=== PATIENT | female | born 1950 | race Caucasian/White ===

== ENCOUNTER 2017-02-26 09:57 | Inpatient (IN) | payer OTHER ==
[2017-02-26] VITALS (21 sets, daily range): BP systolic 107–146; BP diastolic 51–64; PULSE 75–114; RESP 12–20; Ht 144.8 cm; Wt 73.4 kg
[~2017-02-26] VITALS: Ht 144.8 cm; Wt 73.4 kg
[2017-02-26] MEDS ORDERED: ALEN35TA23 PO ×2 (10:29→15:04)
[2017-02-26] MEDS ORDERED: CALC-84 PO (10:30)
[2017-02-26] MEDS ORDERED: METF500T3 PO ×2 (10:31→15:04)
[2017-02-26] MEDS ORDERED: GABA300C16 PO ×2 (10:31→15:04)
[2017-02-26] MEDS ORDERED: PRAV10TA43 PO (10:32)
[2017-02-26] MEDS ORDERED: ANAS1TAB PO ×2 (10:33→15:04)
--- NOTE | 2017-02-26 12:28 | HPN ---
Date/Time of Note Date/Time of Note DATE: 02/26/17 TIME: 12:28 Interval H&P Admission Note Pt. seen H&P reviewed: No system changes HEVER MARIANO MD Feb 26, 2017 12:28
[2017-02-26] MEDS ORDERED: LIDOCAINE 2% (SDV) 5 ML INJ ONE (12:29)
[2017-02-26] MEDS ORDERED: MEPERIDINE 100 MG INJ ONE (12:29)
[2017-02-26] MEDS ORDERED: NEOSTIGMINE 3 MG/3 ML SYRINGE ONE (12:29)
[2017-02-26] MEDS ORDERED: GLYCOPYRROLATE 0.4 MG INJ ONE (12:29)
[2017-02-26] MEDS ORDERED: PROPOFOL 20 ML ONE (12:29)
[2017-02-26] MEDS ORDERED: SUCCINYLCHOLINE CHLORIDE 100 MG/5 ML SYG IV ONE (12:29)
[2017-02-26] MEDS ORDERED: ROCURONIUM 50 MG INJ ONE (12:29)
[2017-02-26] MEDS ORDERED: LABETALOL HCL 20MG INJ IV PRN ×2 (12:30→15:30)
[2017-02-26] MEDS ORDERED: METOCLOPRAMIDE 10 MG INJ IV PRN ×2 (12:30→15:30)
[2017-02-26] MEDS ORDERED: MIDAZOLAM 1 MG/ML 2 ML INJ IV PRN ×2 (12:30→15:30)
[2017-02-26] MEDS ORDERED: HYDROmorphONE (0.2 MG/ML) 10ML SYG IV PRN ×6 (12:30→15:30)
[2017-02-26] MEDS ORDERED: ONDANSETRON 4 MG INJ IV PRN ×2 (12:30→15:30)
[2017-02-26] MEDS ORDERED: MEPERIDINE 25 MG INJ IV PRN ×2 (12:30→15:30)
[2017-02-26] MEDS ORDERED: OXYCODONE/ACETAMINOPHEN (5/325) TAB PO PRN ×2 (12:30)
[2017-02-26] MEDS ORDERED: FENTAnyl 50 MCG/ML VIAL IV PRN ×5 (12:30→15:30)
[2017-02-26] MEDS ORDERED: hydrALAzine 20 MG INJ IV PRN ×2 (12:30→15:30)
[2017-02-26] MEDS ORDERED: EPHEDrine SULFATE 50 MG/5 ML SYG IV PRN ×2 (12:30→15:30)
[2017-02-26] MEDS ORDERED: DIPHENHYDRAMINE 50 MG INJ IV PRN ×2 (12:30→15:30)
[2017-02-26] MEDS ORDERED: CEFAZOLIN 1 GM INJ ONE (12:45)
[2017-02-26] MEDS ORDERED: ONDANSETRON 4 MG INJ ONE (14:18)
[2017-02-26] MEDS ORDERED: METOCLOPRAMIDE 10 MG INJ ONE (14:19)
[2017-02-26] MEDS ORDERED: EPHEDrine SULFATE 50 MG/5 ML SYG ONE (14:45)
[2017-02-26] MEDS ORDERED: morphine 2 MG INJ IV PRN (15:00)
[2017-02-26] MEDS ORDERED: ALBUTEROL 0.5% (NEB) 2.5 MG/0.5 ML AMP ONE (15:04)
--- NOTE | 2017-02-26 15:14 | OPR ---
Date/Time of Note Date/Time of Note DATE: 02/26/17 TIME: 15:05 Operative Report Procedure Date: Feb 26, 2017 Preoperative Diagnosis Papillary thyroid carcinoma Postoperative Diagnosis Metastatic papillary thyroid carcinoma Operation/Procedure Performed Total thyroidectomy, central neck dissection, right selective modified neck dissection of levels 3 and 4, and right superior parathyroid autotransplantation. Surgeon Hever Llamas [employer] Anesthesia Type: general Estimated Blood Loss: 100 - 150 ml's Transfusion none Specimen Right lateral neck dissection, central neck dissection with thyroidectomy, parathyroid partial. Grafts/Implants Parathyroid autotransplantation. Tubes/Drains BRODERICK 10 mm flat. Complications none Pt Condition Post Procedure: stable Disposition: PACU Indications Papillary thyroid carcinoma. Procedure Description Description of procedure: The patient was identified in the holding area. We had a discussion to confirm understanding of indications, risks, benefits, alternatives and postoperative care associated with the operation. Informed consent was signed. The patient was taken the operating room and placed supine on the operating table. General endotracheal anesthesia was achieved with a recurrent laryngeal nerve monitor capable endotracheal tube and recurrent laryngeal nerve monitoring was performed throughout the duration of the case. A shoulder roll was placed. The neck was prepped and draped in normal sterile fashion. A 15 blade was used to make a horizontal incision in a preexisting cervical crease. Subplatysmal flaps were elevated circumferentially. The midline raphe between the strap muscles was identified and vertically divided using monopolar cautery. The left sided strap muscles were elevated off the thyroid lobe. Dissection was fairly easy as there were no adhesions or signs of invasion.The superior pole of the thyroid gland was identified and bluntly dissected free to isolate the superior laryngeal nerve and the super pole vascular pedicle. The nerve was kept intact as the vessels were individually ligated and transected with the Liga-sure small jaw. In addition were used to assure continued hemostasis. More inferiorly, the middle thyroid vein was taken after careful ligation and transection and dissection in the tracheoesophageal groove was used to identify the recurrent laryngeal nerve. It was followed superiorly to the cricothyroid joint and in this area the the superior parathyroid gland was identified. The parathyroid was carefully dissected laterally saving the pedicle after which overlying thyroid tissue was from its fibrous attachments to the surrounding soft tissues with the bipolar forceps. More inferior dissection was used to free the entirety of the recurrent laryngeal nerve. The inferior parathyroid and surrounding fat pad was at this point identified and swept laterally, again sparing the pedicle. Careful inspection and palpation of the level 6 [place] at this point revealed no adenopathy. The thyroidectomy commenced in a lateral to medial fashion, dissecting the thyroid gland off of the recurrent nerve towards the trachea. At this point, the contralateral thyroidectomy was performed in a similar sequence. Unfortunately , the large tumor was invading the strap muscles and had fused with metastatic adenopathy in the central neck over the common carotid artery. This necessitated dissection of the supraclavicular fossa to identify the IJ vein and the carotid artery. This anatomy was lateralized to find the RLN. This was followed to the CT joint after which the thyroidectomy commenced laterally to the right side. The great vessels and RLN and vagus were spared as the dissection of a large conglomerate of muscle, nodes and papillary carcinoma was taken up the carotid artery. This was freed and sent for permanent evaluation. A parathyroid gland was found in the posterior aspect of the specimen. This was confirmed by frozen section, morselized, and then implanted into the ipsilateral SCM. The area was oversewn with 2 nylon. Next, the lateral neck at level 4 was palpated and inspected. A large node was identified. Decision was made to proceed with level 3 and 4 selective neck dissection. The SCM was lateralized and the cervical roots were identified. The contents of level 4 were dissected superiorly sparing the rootlets, jugular vein, and vagus nerve. This was taken up above the level of the resected omohyoid towards the level two neck. All nodes were freed from the carotid sheath to the digastric muscle. The specimen was transected. Valsalva was performed. There was no bleeding or oozing. 10 mm flat BRODERICK was placed. A 3-0 Vicryl was used to reapproximate the strap muscles in midline after which the same suture was used to reapproximate the platysma in interrupted buried fashion. Jackson were used to reapproximate the skin. The patient tolerated the procedure well and was extubated, taken to PACU in stable condition. Complications: None HEVER LLAMAS MD Feb 26, 2017 15:14
[2017-02-26] MEDS: FENTAnyl 50 MCG/ML VIAL IV PRN ×4 (15:26→15:56)
[2017-02-26] MEDS ORDERED: ALBUTEROL 0.083% (NEB) 2.5 MG/3 ML AMP HHN PRN (15:30)
[2017-02-26] MEDS ORDERED: AMPICILLIN/SULB 3 GM/NS (PMX) 100 ML IVPB SCH (16:00)
[2017-02-26] MEDS: AMPICILLIN/SULB 3 GM/NS (PMX) 100 ML IVPB SCH (18:32)
--- NOTE | 2017-02-26 20:28 | PN ---
Date/Time of Note Date/Time of Note DATE: 02/26/17 TIME: 20:26 Assessment/Plan VTE Prophylaxis VTE Prophylaxis Intervention: ambulation Lines/Catheters IV Catheter Type (from Nrsg): Peripheral IV Assessment/Plan Chief Complaint/Hosp Course Subjective: Pain controlled no dyspnea fever. Sore throat. Objective: Vital signs stable Physical exam No pallor icterus. Next dressing C/D/ Regular no murmur rub gallop Clear bilaterally Bowel sounds positive nontender nondistended no rigidity rebound guarding overweight. No edema Assessment and plan 1. Pod 0 :Total thyroidectomy, central neck dissection, rt selective mod neck dissection of levels 3/4, and Rt superior parathyroid autotransplantation 2. Thyroid malignancy 3. History of breast cancer 4. Diabetes? 5. DJD Problems: Exam/Review of Systems Vital Signs Vitals Vital Signs Date Time Temp Pulse Resp B/P Pulse Ox O2 Delivery O2 Flow Rate FiO2 02/26/17 20:15 98.6 100 20 121/58 96 02/26/17 18:15 Nasal Cannula 3.0 Intake and Output 02/25/17 02/25/17 02/26/17 15:00 23:00 07:00 Intake Total 700 ml Output Total 50 ml Balance 650 ml Results Results 24 hrs Laboratory Tests Test 02/26/17 16:37 Calcium Level 8.9 Medications Medications Current Medications Morphine Sulfate (morphine) 2 mg Q2H PRN IV PAIN LEVEL 6-10 Last administered on 02/26/17 18:37; Admin Dose 2 MG; Start 02/26/17 at 15:00 Oxycodone/ Acetaminophen (Percocet (5/ 325)) 1 tab Q6H PRN PO PAIN LEVEL 6-10; Start 02/26/17 at 15:00 Calcium Carbonate 1000 mg 1,000 mg BID PO ; Start 02/26/17 at 21:00 Ampicillin Sodium/ Sulbactam Sodium (Unasyn 3gm/NS (Pmx)) 100 ml @ 200 mls/hr Q6H IVPB Last administered on 02/26/17 18:32; Admin Dose 200 MLS/HR; Start 02/26/17 at 18:00 ETIENNE GREENWOOD MD Feb 26, 2017 20:28
[2017-02-26] MEDS: CALCIUM CARBONATE 500 MG CHEW TAB PO SCH (21:04)
[2017-02-27] MEDS: AMPICILLIN/SULB 3 GM/NS (PMX) 100 ML IVPB SCH ×4 (00:19→18:23)
[2017-02-27] MEDS: OXYCODONE/ACETAMINOPHEN (5/325) TAB PO PRN ×3 (01:53→21:34)
[2017-02-27 02:15] VITALS: BP 108/64; RESP 18
[2017-02-27 04:58] LABS: BASOPHILS % 0.2 % (0.0-2.0); EOSINOPHILS % 0.2 % (0.0-7.0); HEMATOCRIT 34.4 % (37.0-47.0); HEMOGLOBIN 11.1 g/dl (12.0-16.0); LYMPHOCYTES # 1.3 10^3/ul (0.8-2.9); LYMPHOCYTES % 15.1 % (15.0-51.0); MEAN CORPUSCULAR HEMOGLOBIN 29.2 pg (29.0-33.0); MEAN CORPUSCULAR HGB CONC 32.3 g/dl (32.0-37.0); MEAN CORPUSCULAR VOLUME 90.5 fl (82.0-101.0); MONOCYTE # 0.6 10^3/ul (0.3-0.9); MONOCYTES % 6.6 % (0.0-11.0); NEUTROPHIL # 6.8 10^3/ul (1.6-7.5); NEUTROPHILS % 77.6 % (39.0-77.0); PLATELET COUNT 163 10^3/UL (140-415); RED CELL DISTRIBUTION WIDTH 13.2 % (11.5-14.5); WHITE BLOOD COUNT 8.8 10^3/ul (4.8-10.8)
[2017-02-27 05:47] LABS: ALBUMIN/GLOBULIN RATIO 0.96; BILIRUBIN,INDIRECT 0.5 mg/dl (0-1.1); BILIRUBIN,TOTAL 0.5 mg/dl (0.2-1.3); CALCIUM 8.2 mg/dl (8.4-10.2); CREATININE 0.58 mg/dl (0.44-1.00); MAGNESIUM 1.6 mg/dl (1.7-2.5); PHOSPHORUS 5.1 mg/dl (2.5-4.9); POTASSIUM 3.9 mmol/L (3.5-5.1); TOTAL PROTEIN 6.1 g/dl (6.1-8.1)
[2017-02-27 06:15] LABS: THYROID STIMULATING HORMONE 0.588 MIU/L (0.465-4.680)
[2017-02-27] MEDS: ENOXAPARIN 40 MG/0.4 ML SYG SC SCH (08:13)
[2017-02-27] MEDS: CALCIUM CARBONATE 500 MG CHEW TAB PO SCH ×2 (08:13→21:34)
[2017-02-27] MEDS ORDERED: MAGNESIUM SULFATE 1 GM/D5W 100 ML IVPB ONE (12:00)
--- NOTE | 2017-02-27 12:00 | CONS ---
Date/Time of Note Date/Time of Note DATE: 02/27/17 TIME: 11:57 Consult Date/Type/Reason Admit Date/Time Feb 26, 2017 at 15:04 Initial Consult Date Subjective Patient having some mild neck pain, otherwise tolerating diet, no acute events overnight. Objective Vital Signs Date Time Temp Pulse Resp B/P Pulse Ox O2 Delivery O2 Flow Rate FiO2 02/27/17 08:00 Nasal Cannula 3.0 02/27/17 02:15 98.6 73 18 108/64 96 Intake and Output 02/26/17 02/26/17 02/27/17 15:00 23:00 07:00 Intake Total 300 ml 200 ml Output Total 10 ml 460 ml 50 ml Balance -10 ml -160 ml 150 ml Exam No pallor icterus. Neck surgical site covered with bandage, appears clean dry and intact otherwise Regular no murmur rub gallop Clear bilaterally Bowel sounds positive nontender nondistended no rigidity rebound guarding overweight. No edema Results/Medications Result Diagram: 02/27/17 0420 02/27/17 0421 Results 24 hrs Laboratory Tests Test 02/26/17 16:37 02/27/17 04:20 02/27/17 04:21 Calcium Level 8.9 8.2 L White Blood Count 8.8 Red Blood Count 3.80 L Hemoglobin 11.1 L Hematocrit 34.4 L Mean Corpuscular Volume 90.5 Mean Corpuscular Hemoglobin 29.2 Mean Corpuscular Hemoglobin Concent 32.3 Red Cell Distribution Width 13.2 Platelet Count 163 Mean Platelet Volume 11.0 H Neutrophils % 77.6 H Lymphocytes % 15.1 Monocytes % 6.6 Eosinophils % 0.2 Basophils % 0.2 Nucleated Red Blood Cells % 0.0 Neutrophils # 6.8 Lymphocytes # 1.3 Monocytes # 0.6 Eosinophils # 0.0 Basophils # 0.0 Nucleated Red Blood Cells # 0.0 Sodium Level 140 Potassium Level 3.9 Chloride Level 102 Carbon Dioxide Level 31 Anion Gap 11 Blood Urea Nitrogen 16 Creatinine 0.58 Glucose Level 130 Phosphorus Level 5.1 H Magnesium Level 1.6 L Total Bilirubin 0.5 Direct Bilirubin 0.00 Indirect Bilirubin 0.5 Aspartate Amino Transf (AST/SGOT) 20 Alanine Aminotransferase (ALT/SGPT) 31 Alkaline Phosphatase 49 Total Protein 6.1 Albumin 3.0 L Globulin 3.10 Albumin/Globulin Ratio 0.96 Thyroid Stimulating Hormone (TSH) 0.588 Medications Current Medications Morphine Sulfate (morphine) 2 mg Q2H PRN IV PAIN LEVEL 6-10 Last administered on 02/26/17 18:37; Admin Dose 2 MG; Start 02/26/17 at 15:00 Oxycodone/ Acetaminophen (Percocet (5/ 325)) 1 tab Q6H PRN PO PAIN LEVEL 6-10 Last administered on 02/27/17 11:46; Admin Dose 1 TAB; Start 02/26/17 at 15: 00 Calcium Carbonate 1000 mg 1,000 mg BID PO Last administered on 02/27/17 08:13 ; Admin Dose 1,000 MG; Start 02/26/17 at 21:00 Ampicillin Sodium/ Sulbactam Sodium (Unasyn 3gm/NS (Pmx)) 100 ml @ 200 mls/hr Q6H IVPB Last administered on 02/27/17 11:46; Admin Dose 200 MLS/HR; Start 02/26/17 at 18:00 Enoxaparin Sodium (Lovenox) 40 mg DAILY SC Last administered on 02/27/17 08: 13; Admin Dose 40 MG; Start 02/27/17 at 09:00 Influenza Virus Vaccine 0.5 ml 0.5 ml ONCE ONCE IM* ; Start 02/27/17 at 16:00; Stop 02/27/17 at 16:01 Magnesium Sulfate/ Dextrose (Magnesium Sulfate 1 Gm/D5W) 100 ml @ 100 mls/hr ONCE ONCE IVPB ; Start 02/27/17 at 12:00; Stop 02/27/17 at 12:59 Assessment/Plan Chief Complaint/Hosp Course Assessment and plan 1. Pod 1 :Total thyroidectomy, central neck dissection, rt selective mod neck dissection of levels 3/4, and Rt superior parathyroid autotransplantation- continue treatment per primary team 2. Thyroid malignancy -monitor 3. History of breast cancer -monitor 4. Diabetes? -Monitor sugars 5. DJD Problems: DARVIN PIPER Feb 27, 2017 12:00
--- NOTE | 2017-02-27 12:27 | PN ---
Date/Time of Note Date/Time of Note DATE: 02/27/17 TIME: 12:26 Assessment/Plan VTE Prophylaxis VTE Prophylaxis Intervention: ambulation Lines/Catheters IV Catheter Type (from Nrsg): Peripheral IV Subjective 24 Hr Interval Summary Free Text/Dictation Doing well. Mild pain. Ca down to 8.2. BRODERICK 50 to 15 overnight Neck flat. AP. Stable. Appreciate IM input. DC planning for tomorrow if JPO stays low and Ca stays normal. Exam/Review of Systems Vital Signs Vitals Vital Signs Date Time Temp Pulse Resp B/P Pulse Ox O2 Delivery O2 Flow Rate FiO2 02/27/17 08:00 Nasal Cannula 3.0 02/27/17 02:15 98.6 73 18 108/64 96 Intake and Output 02/26/17 02/26/17 02/27/17 15:00 23:00 07:00 Intake Total 300 ml 200 ml Output Total 10 ml 460 ml 50 ml Balance -10 ml -160 ml 150 ml Results Result Diagram: 02/27/17 0420 02/27/17 0421 Results 24 hrs Laboratory Tests Test 02/26/17 16:37 02/27/17 04:20 02/27/17 04:21 Calcium Level 8.9 8.2 L White Blood Count 8.8 Red Blood Count 3.80 L Hemoglobin 11.1 L Hematocrit 34.4 L Mean Corpuscular Volume 90.5 Mean Corpuscular Hemoglobin 29.2 Mean Corpuscular Hemoglobin Concent 32.3 Red Cell Distribution Width 13.2 Platelet Count 163 Mean Platelet Volume 11.0 H Neutrophils % 77.6 H Lymphocytes % 15.1 Monocytes % 6.6 Eosinophils % 0.2 Basophils % 0.2 Nucleated Red Blood Cells % 0.0 Neutrophils # 6.8 Lymphocytes # 1.3 Monocytes # 0.6 Eosinophils # 0.0 Basophils # 0.0 Nucleated Red Blood Cells # 0.0 Sodium Level 140 Potassium Level 3.9 Chloride Level 102 Carbon Dioxide Level 31 Anion Gap 11 Blood Urea Nitrogen 16 Creatinine 0.58 Glucose Level 130 Phosphorus Level 5.1 H Magnesium Level 1.6 L Total Bilirubin 0.5 Direct Bilirubin 0.00 Indirect Bilirubin 0.5 Aspartate Amino Transf (AST/SGOT) 20 Alanine Aminotransferase (ALT/SGPT) 31 Alkaline Phosphatase 49 Total Protein 6.1 Albumin 3.0 L Globulin 3.10 Albumin/Globulin Ratio 0.96 Thyroid Stimulating Hormone (TSH) 0.588 Medications Medications Current Medications Morphine Sulfate (morphine) 2 mg Q2H PRN IV PAIN LEVEL 6-10 Last administered on 02/26/17 18:37; Admin Dose 2 MG; Start 02/26/17 at 15:00 Oxycodone/ Acetaminophen (Percocet (5/ 325)) 1 tab Q6H PRN PO PAIN LEVEL 6-10 Last administered on 02/27/17 11:46; Admin Dose 1 TAB; Start 02/26/17 at 15: 00 Calcium Carbonate 1000 mg 1,000 mg BID PO Last administered on 02/27/17 08:13 ; Admin Dose 1,000 MG; Start 02/26/17 at 21:00 Ampicillin Sodium/ Sulbactam Sodium (Unasyn 3gm/NS (Pmx)) 100 ml @ 200 mls/hr Q6H IVPB Last administered on 02/27/17 11:46; Admin Dose 200 MLS/HR; Start 02/26/17 at 18:00 Enoxaparin Sodium (Lovenox) 40 mg DAILY SC Last administered on 02/27/17 08: 13; Admin Dose 40 MG; Start 02/27/17 at 09:00 Influenza Virus Vaccine 0.5 ml 0.5 ml ONCE ONCE IM* ; Start 02/27/17 at 16:00; Stop 02/27/17 at 16:01 Magnesium Sulfate/ Dextrose (Magnesium Sulfate 1 Gm/D5W) 100 ml @ 100 mls/hr ONCE ONCE IVPB ; Start 02/27/17 at 12:00; Stop 02/27/17 at 12:59 HEVER MARIANO MD Feb 27, 2017 12:27
[2017-02-27] MEDS ORDERED: INFLUENZA VIRUS VACCINE 0.5 ML SYG IM* ONE (16:00)
[2017-02-27 19:47] VITALS: BP 134/60; RESP 20
[2017-02-28] MEDS: AMPICILLIN/SULB 3 GM/NS (PMX) 100 ML IVPB SCH ×4 (00:13→17:33)
[2017-02-28 02:53] VITALS: BP 130/62; RESP 18
[2017-02-28 07:27] VITALS: BP 111/52; RESP 19
[2017-02-28] MEDS: CALCIUM CARBONATE 500 MG CHEW TAB PO SCH ×3 (09:01→21:15)
[2017-02-28] MEDS: ENOXAPARIN 40 MG/0.4 ML SYG SC SCH (09:06)
--- NOTE | 2017-02-28 11:41 | CONS ---
Date/Time of Note Date/Time of Note DATE: 02/28/17 TIME: 11:40 Consult Date/Type/Reason Admit Date/Time Feb 26, 2017 at 15:04 Subjective Patient says when drinking milk having some difficulty swallowing, denies nausea or vomiting. Objective Vital Signs Date Time Temp Pulse Resp B/P Pulse Ox O2 Delivery O2 Flow Rate FiO2 02/28/17 07:27 98.0 87 19 111/52 98 02/27/17 08:00 Nasal Cannula 3.0 Intake and Output 02/27/17 02/27/17 02/28/17 15:00 23:00 07:00 Intake Total 1020 ml 100 ml Output Total 10 ml 820 ml 10 ml Balance -10 ml 200 ml 90 ml Exam No pallor icterus. Neck surgical site covered with bandage, Drain in place, appears clean dry and intact otherwise Regular no murmur rub gallop Clear bilaterally Bowel sounds positive nontender nondistended no rigidity rebound guarding overweight. No edema Results/Medications Result Diagram: 02/27/1741902/27/17 042 Results 24 hrs Laboratory Tests Test 02/27/17 15:24 Calcium Level 7.9 L Medications Current Medications Morphine Sulfate (morphine) 2 mg Q2H PRN IV PAIN LEVEL 6-10 Last administered on 02/26/17 18:37; Admin Dose 2 MG; Start 02/26/17 at 15:00 Oxycodone/ Acetaminophen (Percocet (5/ 325)) 1 tab Q6H PRN PO PAIN LEVEL 6-10 Last administered on 02/27/17 21:34; Admin Dose 1 TAB; Start 02/26/17 at 15: 00 Calcium Carbonate 1000 mg 1,000 mg BID PO Last administered on 02/28/17 09:01 ; Admin Dose 1,000 MG; Start 02/26/17 at 21:00 Ampicillin Sodium/ Sulbactam Sodium (Unasyn 3gm/NS (Pmx)) 100 ml @ 200 mls/hr Q6H IVPB Last administered on 02/28/17 06:25; Admin Dose 200 MLS/HR; Start 02/26/17 at 18:00 Enoxaparin Sodium (Lovenox) 40 mg DAILY SC Last administered on 02/28/17 09: 06; Admin Dose 40 MG; Start 02/27/17 at 09:00 Assessment/Plan Chief Complaint/Hosp Course Assessment and plan 1. Pod # 2 :Total thyroidectomy, central neck dissection, rt selective mod neck dissection of levels 3/4, and Rt superior parathyroid autotransplantation- continue treatment per primary team, monitoring calcium levels 2. Thyroid malignancy -monitor 3. History of breast cancer -monitor 4. Diabetes? -Monitor sugars 5. DJD Problems: DARVIN PIPER Feb 28, 2017 11:41
[2017-02-28] MEDS ORDERED: CALCIUM CARBONATE 500 MG CHEW TAB PO ONE ×2 (12:00→14:00)
[2017-02-28 14:00] VITALS: BP 121/61; RESP 18
[2017-02-28] MEDS: CALCITRIOL 0.25 MCG CAP PO SCH ×2 (14:43→21:15)
[2017-02-28 19:20] VITALS: BP 142/63; RESP 18
[2017-02-28] MEDS ORDERED: CALCIUM GLUCONATE 10% 1 GM in SOD CHLORIDE 0.9% 100 ML IVPB ONE (20:30)
[2017-02-28] MEDS ORDERED: CALCIUM CARBONATE 500 MG CHEW TAB PO SCH (21:00)
[2017-03-01] MEDS: AMPICILLIN/SULB 3 GM/NS (PMX) 100 ML IVPB SCH ×3 (00:06→12:03)
[2017-03-01 02:00] VITALS: BP 133/62; RESP 18
[2017-03-01] MEDS: CALCIUM CARBONATE 500 MG CHEW TAB PO SCH ×6 (02:59→21:02)
[2017-03-01] MEDS: CALCITRIOL 0.25 MCG CAP PO SCH ×2 (08:25→21:02)
[2017-03-01] MEDS: ENOXAPARIN 40 MG/0.4 ML SYG SC SCH (08:28)
[2017-03-01 08:39] VITALS: BP 134/59; RESP 18
--- NOTE | 2017-03-01 11:55 | CONS ---
Date/Time of Note Date/Time of Note DATE: 03/01/17 TIME: 11:51 Consult Date/Type/Reason Admit Date/Time Feb 26, 2017 at 15:04 Subjective No acute events overnight, minimal drainage from drain. Received calcium supplementation yesterday, levels normal today. Objective Vital Signs Date Time Temp Pulse Resp B/P Pulse Ox O2 Delivery O2 Flow Rate FiO2 03/01/17 08:39 98.3 65 18 134/59 92 02/27/17 08:00 Nasal Cannula 3.0 Intake and Output 02/28/17 02/28/17 03/01/17 15:00 23:00 07:00 Intake Total 800 ml 860 ml 600 ml Output Total 805 ml 5 ml Balance 800 ml 55 ml 595 ml Exam No pallor icterus. Neck surgical site covered with bandage, Drain in place, appears clean dry and intact otherwise Regular no murmur rub gallop Clear bilaterally Bowel sounds positive nontender nondistended no rigidity rebound guarding overweight. No edema Results/Medications Result Diagram: 02/27/17 0420 02/27/17 042 Results 24 hrs Laboratory Tests Test 02/28/17 12:09 02/28/17 15:44 02/28/17 20:02 03/01/17 00:33 Calcium Level 7.6 L 6.9 L 8.0 L 7.9 L Test 03/01/17 04:50 03/01/17 08:22 Calcium Level 7.8 L 8.7 Medications Current Medications Morphine Sulfate (morphine) 2 mg Q2H PRN IV PAIN LEVEL 6-10 Last administered on 02/26/17 18:37; Admin Dose 2 MG; Start 02/26/17 at 15:00 Oxycodone/ Acetaminophen 1 tab 1 tab Q6H PRN PO PAIN LEVEL 6-10 Last administered on 02/27/17 21:34; Admin Dose 1 TAB; Start 02/26/17 at 15:00 Ampicillin Sodium/ Sulbactam Sodium (Unasyn 3gm/NS (Pmx)) 100 ml @ 200 mls/hr Q6H IVPB Last administered on 03/01/17 05:48; Admin Dose 200 MLS/HR; Start 02/26/17 at 18:00 Enoxaparin Sodium (Lovenox) 40 mg DAILY SC Last administered on 03/01/17 08: 28; Admin Dose 40 MG; Start 02/27/17 at 09:00 Calcium Carbonate (Tums) 2,000 mg Q4 PO Last administered on 03/01/17 08:25; Admin Dose 2,000 MG; Start 02/28/17 at 17:00 Calcitriol (Rocaltrol) 0.5 mcg BID PO Last administered on 03/01/17 08:25; Admin Dose 0.5 MCG; Start 02/28/17 at 14:00 Assessment/Plan Chief Complaint/Hosp Course Assessment and plan 1. Pod # 3 :Total thyroidectomy, central neck dissection, rt selective mod neck dissection of levels 3/4, and Rt superior parathyroid autotransplantation- continue treatment per primary team, monitoring calcium levels 2. Thyroid malignancy -monitor 3. History of breast cancer -monitor 4. Diabetes? -Monitor sugars 5. DJD Problems: DARVIN PIPER Mar 01, 2017 11:55
[2017-03-01 14:54] VITALS: BP 130/72; RESP 18
[2017-03-01] MEDS ORDERED: CALCIUM GLUCONATE 10% 1 GM in SOD CHLORIDE 0.9% 100 ML IVPB ONE (15:00)
--- NOTE | 2017-03-01 15:46 | CONS ---
Date/Time of Note Date/Time of Note DATE: 03/01/17 TIME: 15:29 Assessment/Plan Assessment/Plan Chief Complaint/Hosp Course Primary care physician is Dr. Haley Naqvi PSYCHOLOGIST SOCIAL fax number is [phone] Problems: (1) Hypocalcemia Onset Date: ~ 02/27/2017 Status: Acute Comment: Patient has acute postoperative hypocalcemia. She has been treated with some oral calcium and also with IV calcium. She is on calcitriol at an appropriate dosing. However is quite possible she had some degree of vitamin D deficiency before surgery we do not have any of those labs. I will go ahead and replete her parenterally to get her up to the level that she can be discharged. This will have to be fine-tuned. 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 She however did have spread beyond the capsule with local tumor. Given her age above 45 this stage her as a stage IV disease process. To the best I can tell from the dictation she does not have bulky residual disease and therefore should be treated with radioactive iodine ablation therapy as an outpatient. Please note she may have some recurrent laryngeal nerve injury possibly (3) Papillary thyroid carcinoma Status: Acute Comment: As noted above. Thyroid hormone suppression for the time being using short acting agent liothyronine until after radioactive iodine ablation then treatment with levothyroxine at suppressive doses aiming to get the TSH at roughly 0.1 MICROSCOPIC DIAGNOSIS: A-Right superior parathyroid: -- Parathyroid tissue. -- There is no evidence of malignancy. B-Thyroid central neck, total thyroidectomy: -- Papillary carcinoma, classical type, right lobe. -- Size: 4.2 cm in maximum diameter. -- No angioinvasion or lymphatic invasion identified. -- There is extrathyroidal extension of carcinoma. -- A focus of carcinoma extends to the anterior inked margin where there is disruption of the capsule. -- Metastatic papillary carcinoma present in right perithyroidal soft tissue. -- Parathyroid identified, right lobe. -- Small adenomatoid and colloid nodules, left lobe. C-Right cervical lymph nodes, level 3 and 4: -- Five lymph nodes are negative for metastatic carcinoma (0/5). SYNOPTIC CANCER CASE SUMMARY: PROCEDURE: Total thyroidectomy. LYMPH NODE SAMPLING: Right lateral neck dissection. TUMOR LATERALITY: Right lobe. TUMOR FOCALITY: Unifocal. TUMOR SIZE: 4.2 cm in greatest dimension (x 2.5 x 2.4 cm) (maximum dimension includes cystic area of tumor). HISTOLOGIC TYPE: Papillary carcinoma, classical type. Subcapsular location: Present. Sclerosis: Present. Encapsulation: Present. Capsular invasion: Present MARGINS: Papillary carcinoma focally extends to the anterior inked margin of resection where the capsule is disrupted (0.5 cm diameter area, slide B13). All other margins of resection are clear of tumor. ANGIOINVASION: Not identified. LYMPHATIC INVASION: Not identified. PERINEURAL INVASION: Present, focal. EXTRATHYROIDAL EXTENSION: Present, minimal. Carcinoma invades perithyroidal soft tissue including attached skeletal muscle. Additionally, there is a separate focus of metastatic papillary carcinoma within right perithyroidal soft tissue (slide B4). PATHOLOGIC STAGING (pTNM): pT3 pN0. REGIONAL LYMPH NODES: Number examined: 5 Number involved: 0 ADDITIONAL PATHOLOGIC FINDINGS: Adenomatoid nodule and colloid nodules, left lobe. Parathyroid glands, left lobe (one in specimen B and one separately biopsied, specimen A). (4) Carcinoma of right breast in female, estrogen receptor positive Onset Date: ~ 03/29/2016 Status: Chronic Comment: As per Dr. Sosa Qualifiers: Qualified Code: C50.911 - Carcinoma of right breast in female, estrogen receptor positive, unspecified site of breast (5) GERD (gastroesophageal reflux disease) Status: Chronic Comment: Noted in stable Qualifiers: Qualified Code: K21.9 - Gastroesophageal reflux disease without esophagitis (6) Osteoarthritis Status: Chronic Comment: Noted in stable Qualifiers: Qualified Code: M19.91 - Primary osteoarthritis, unspecified site (7) Diabetes mellitus type 2 in obese Status: Chronic Comment: Appears to probably be stable. (8) Obesity Status: Chronic Comment: Noted Qualifiers: (9) Osteoporosis Status: Chronic Comment: Noted. Continue bisphosphonate therapy Qualifiers: Qualified Code: M81.0 - Age-related osteoporosis without current pathological fracture Consultation Date/Type/Reason Admit Date/Time Feb 26, 2017 at 15:04 Date of Consultation: Mar 01, 2017 Type of Consultation: Endocrinology Reason for Consultation Postoperative hypocalcemia Referring Provider: HEVER MARIANO MD Hx of Present Illness 67-year-old female with a diagnosis of papillary carcinoma thyroid after the age of 43 with a tumor 4.2 cm with local spread without distant metastases or lymphadenopathy. Postoperatively she has had dropping calciums. Please note on surgical specimen there were parathyroid glands. Constitutional: no complaints Eyes: no complaints ENT: no complaints Respiratory: no complaints Past Medical History Medical History: cancer (Breast;), diabetes, GERD, high cholesterol, other ( Osteoporosis; no history of radiation) Past Surgical History Past Surgical Hx: other (right breast lumpectomy 2016; right knee arthroscopy) Family History Significant Family History: cancer, diabetes Social History Alcohol Use: none Smoking Status: Never smoker Drug Use: none Exam/Review of Systems Vital Signs Vitals Vital Signs Date Time Temp Pulse Resp B/P Pulse Ox O2 Delivery O2 Flow Rate FiO2 03/01/17 14:54 98.5 67 18 130/72 96 02/27/17 08:00 Nasal Cannula 3.0 Intake and Output 02/28/17 02/28/17 03/01/17 15:00 23:00 07:00 Intake Total 800 ml 860 ml 600 ml Output Total 805 ml 5 ml Balance 800 ml 55 ml 595 ml Exam Constitutional: alert, oriented Psych: nl mood/affect, no complaints Head: atraumatic, normocephalic Eyes: EOMI, PERRL, nl conjunctiva, nl lids, nl sclera ENMT: mucosa pink and moist, nl external ears & nose, nl lips & teeth, nl nasal mucosa & septum, other Neck: non-tender, other, supple Respiratory: clear to auscultation, normal air movement Cardiovascular: nl pulses, regular rate and rhythm Gastrointestinal: nl liver, spleen, non-tender, soft Results Result Diagram: 02/27/1741902/27/17420 Results 24 hrs Laboratory Tests Test 02/28/17 15:44 02/28/17 20:02 03/01/17 00:33 03/01/17 04:50 Calcium Level 6.9 L 8.0 L 7.9 L 7.8 L Test 03/01/17 08:22 03/01/17 12:06 Calcium Level 8.7 8.0 L Medications Medications Current Medications Morphine Sulfate (morphine) 2 mg Q2H PRN IV PAIN LEVEL 6-10 Last administered on 02/26/17 18:37; Admin Dose 2 MG; Start 02/26/17 at 15:00 Oxycodone/ Acetaminophen (Percocet (5/ 325)) 1 tab Q6H PRN PO PAIN LEVEL 6-10 Last administered on 02/27/17 21:34; Admin Dose 1 TAB; Start 02/26/17 at 15: 00 Enoxaparin Sodium (Lovenox) 40 mg DAILY SC Last administered on 03/01/17 08: 28; Admin Dose 40 MG; Start 02/27/17 at 09:00 Calcium Carbonate (Tums) 2,000 mg Q4 PO Last administered on 03/01/17 12:56; Admin Dose 2,000 MG; Start 02/28/17 at 17:00 Calcitriol 0.5 mcg 0.5 mcg BID PO Last administered on 03/01/17 08:25; Admin Dose 0.5 MCG; Start 02/28/17 at 14:00 Calcium Gluconate/ Sodium Chloride (Ca Gluc/NS) 110 ml @ 110 mls/hr ONCE ONCE IVPB ; Start 03/01/17 at 15:00; Stop 03/01/17 at 15:59 Calcitriol (Calcitriol) 1 mcg ONCE IV ; Start 03/01/17 at 16:30; Stop at 20:00 Ergocalciferol (Drisdol Liquid (Nicu)) 50,000 units ONCE PO ; Start 03/01/17 at 16:30; Stop 03/01/17 at 20:00 Copies To: CC: HEVER MARIANO MD; JOSE SOSA JOSHUA A MD Mar 01, 2017 15:42
[2017-03-01] MEDS ORDERED: ERGOCALCIFEROL (8000 UNITS/ML PO SYG) PO SCH (16:30)
[2017-03-01] MEDS ORDERED: CALCITRIOL 1 MCG INJ IV SCH (16:30)
--- NOTE | 2017-03-01 19:32 | PN ---
Date/Time of Note Date/Time of Note DATE: 03/01/17 TIME: 19:25 Assessment/Plan VTE Prophylaxis VTE Prophylaxis Intervention: ambulation Lines/Catheters IV Catheter Type (from Nrs): Saline Lock Urinary Cath still in place: No Subjective 24 Hr Interval Summary Free Text/Dictation Doing well. JPO reduced. Neck flat. BRODERICK removed. Ca dropped. Labs noted. Path noted as well. Node dissection results surprising. The right thyroid lobe was invasive to the level 6 carotid sheath. AP: Postsurgical hypocalcemia. Appreciate Dr. Ramires input. This disease is aggressive. Path report noted. The tumor invaded into strap muscles and medial carotid sheath. Disease is likely metastatic and longstanding into level 6 at least as the conglomerate composite resection likely represents fusion of metastatic nodes and the expanding primary tumor. I will speak to Pathology to clarify. Will await final recs of Dr. Ramires prior to DC. Exam/Review of Systems Vital Signs Vitals Vital Signs Date Time Temp Pulse Resp B/P Pulse Ox O2 Delivery O2 Flow Rate FiO2 03/01/17 14:54 98.5 67 18 130/72 96 02/27/17 08:00 Nasal Cannula 3.0 Intake and Output 02/28/17 02/28/17 03/01/17 14:59 22:59 06:59 Intake Total 800 ml 860 ml 600 ml Output Total 805 ml 5 ml Balance 800 ml 55 ml 595 ml Results Result Diagram: 02/27/17 0420 02/27/17 0421 Results 24 hrs Laboratory Tests Test 02/28/17 20:02 03/01/17 00:33 03/01/17 04:50 03/01/17 08:22 Calcium Level 8.0 L 7.9 L 7.8 L 8.7 Test 03/01/17 12:06 Calcium Level 8.0 L Medications Medications Current Medications Morphine Sulfate (morphine) 2 mg Q2H PRN IV PAIN LEVEL 6-10 Last administered on 02/26/17 18:37; Admin Dose 2 MG; Start 02/26/17 at 15:00 Oxycodone/ Acetaminophen (Percocet (5/ 325)) 1 tab Q6H PRN PO PAIN LEVEL 6-10 Last administered on 02/27/17 21:34; Admin Dose 1 TAB; Start 02/26/17 at 15: 00 Enoxaparin Sodium (Lovenox) 40 mg DAILY SC Last administered on 03/01/17 08: 28; Admin Dose 40 MG; Start 02/27/17 at 09:00 Calcium Carbonate (Tums) 2,000 mg Q4 PO Last administered on 03/01/17 17:15; Admin Dose 2,000 MG; Start 02/28/17 at 17:00 Calcitriol (Rocaltrol) 0.5 mcg BID PO Last administered on 03/01/17 08:25; Admin Dose 0.5 MCG; Start 02/28/17 at 14:00 Calcitriol (Calcitriol) 1 mcg ONCE IV Last administered on 03/01/17 17:16; Admin Dose 1 MCG; Start 03/01/17 at 16:30; Stop 03/01/17 at 20:00 Ergocalciferol (Drisdol Liquid (Nicu)) 50,000 units ONCE PO Last administered on 03/01/17 17:15; Admin Dose 50,000 UNITS; Start 03/01/17 at 16:30; Stop at 20:00 Liothyronine Sodium (Cytomel) 25 mcg BID PO ; Start 03/01/17 at 21:00 HEVER MARIANO MD Mar 01, 2017 19:32
[2017-03-01 20:07] VITALS: BP 140/65; PULSE 70; RESP 18
[2017-03-01] MEDS: LIOTHYRONINE 25 MCG TAB PO SCH (21:02)
[2017-03-02] MEDS: CALCIUM CARBONATE 500 MG CHEW TAB PO SCH ×3 (01:27→08:39)
[2017-03-02 01:42] VITALS: BP 142/65; RESP 18
[2017-03-02 07:50] VITALS: BP 138/68; RESP 20
[2017-03-02] MEDS: CALCITRIOL 0.25 MCG CAP PO SCH (08:39)
[2017-03-02] MEDS: LIOTHYRONINE 25 MCG TAB PO SCH (08:39)
[2017-03-02] MEDS: ENOXAPARIN 40 MG/0.4 ML SYG SC SCH (08:42)
--- NOTE | 2017-03-02 09:41 | CONS ---
Date/Time of Note Date/Time of Note DATE: 03/02/17 TIME: 09:38 Assessment/Plan Assessment/Plan Chief Complaint/Hosp Course Primary care physician is Dr. Haley Naqvi, [employer]ENDER fax number is [phone] Problems: (1) Papillary thyroid carcinoma Status: Acute Comment: As noted previously this is a stage IV papillary carcinoma thyroid. This actually probably has a good prognosis but she will need radioactive iodine ablation postoperatively. This was should be done in roughly 2 months or so and not sooner. In the meantime she will need to be on thyroid hormone suppressive therapy which would in her case would be liothyronine 25 mcg twice daily and the lead up to the radioactive iodine ablation. After that then it can be done using levothyroxine. I would estimate that the dose she will need will be 150 mcg a day. (2) Carcinoma of right breast in female, estrogen receptor positive Onset Date: ~ 03/29/2016 Status: Chronic Comment: As per Dr. Sosa. Qualifiers: Breast location: unspecified site of breast Qualified Code: C50.911 - Carcinoma of right breast in female, estrogen receptor positive, unspecified site of breast (3) Diabetes mellitus type 2 in obese Status: Chronic Comment: Noted and stable. (4) GERD (gastroesophageal reflux disease) Status: Chronic Comment: Noted and stable. Qualifiers: Esophagitis presence: without esophagitis Qualified Code: K21.9 - Gastroesophageal reflux disease without esophagitis (5) Hypocalcemia Onset Date: ~ 02/27/2017 Status: Acute Comment: This is correcting nicely with the usage of the calcium and vitamin D supplementation. At this time I believe she can be discharged and followed up closely as an outpatient. Please note her primary care physician is Dr. Haley Naqvi (6) Status post complete thyroidectomy Onset Date: ~ 02/26/2017 Status: Chronic Comment: As discussed above Consultation Date/Type/Reason Admit Date/Time Feb 26, 2017 at 15:04 Initial Consult Date 03/01/17 Type of Consultation: Endocrinology Reason for Consultation Age for papillary carcinoma of the thyroid; postoperative hypocalcemia Referring Provider: HEVER MARIANO MD 24 HR Interval Summary Constitutional: no complaints Exam/Review of Systems Vital Signs Vitals Vital Signs Date Time Temp Pulse Resp B/P Pulse Ox O2 Delivery O2 Flow Rate FiO2 03/02/17 07:50 97.4 77 20 138/68 93 03/01/17 20:07 Room Air 02/27/17 08:00 3.0 Intake and Output 03/01/17 03/01/17 03/02/17 15:00 23:00 07:00 Intake Total 100 ml 1070 ml 1400 ml Output Total 1100 ml Balance 100 ml 1070 ml 300 ml Results No changes Result Diagram: 02/27/17 0420 02/27/17 0421 Results 24 hrs Laboratory Tests Test 03/01/17 12:06 03/01/17 19:57 Calcium Level 8.0 L 8.6 Medications Medications Current Medications Morphine Sulfate (morphine) 2 mg Q2H PRN IV PAIN LEVEL 6-10 Last administered on 02/26/17 18:37; Admin Dose 2 MG; Start 02/26/17 at 15:00 Oxycodone/ Acetaminophen (Percocet (5/ 325)) 1 tab Q6H PRN PO PAIN LEVEL 6-10 Last administered on 02/27/17 21:34; Admin Dose 1 TAB; Start 02/26/17 at 15: 00 Enoxaparin Sodium (Lovenox) 40 mg DAILY SC Last administered on 03/02/17 08: 42; Admin Dose 40 MG; Start 02/27/17 at 09:00 Calcium Carbonate (Tums) 2,000 mg Q4 PO Last administered on 03/02/17 08:39; Admin Dose 2,000 MG; Start 02/28/17 at 17:00 Calcitriol (Rocaltrol) 0.5 mcg BID PO Last administered on 03/02/17 08:39; Admin Dose 0.5 MCG; Start 02/28/17 at 14:00 Liothyronine Sodium (Cytomel) 25 mcg BID PO Last administered on 03/02/17 08: 39; Admin Dose 25 MCG; Start 03/01/17 at 21:00 Copies To: CC: HEVER MARIANO MD; JOSE SOSA JOSHUA A MD Mar 02, 2017 09:41
--- NOTE | 2017-03-02 10:47 | DS ---
Date/Time of Note Date/Time of Note DATE: 03/02/17 TIME: 10:44 Discharge Summary Admission/Discharge Info Admit Date/Time Feb 26, 2017 at 15:04 Discharge Date/Time 12 pm Discharge Diagnosis Metastatatic papillary carcinoma. Patient Condition: Good Consults Endocrinology, [place] Procedures Thyroidectomy with neck dissection. Hx of Present Illness Papillary CA on imaging for BRCA workup. Did well post op with hypocalcemia resolved with oral supplementation. Hospital Course Primary care physician is Dr. Haley Naqvi, MEDICAID SPECIALIST fax number is [phone] Home Meds Active Scripts Anastrozole* (Arimidex*) 1 Mg Tablet, 1 MG PO DAILY, #30 TAB Prov:HEVER MARIANO MD 02/26/17 Metformin Hcl* (Metformin Hcl* ER) 500 Mg Tab.sr.24h, 500 MG PO DAILY, #30 TAB Prov:HEVER MARIANO MD 02/26/17 Gabapentin* (Gabapentin*) 300 Mg Capsule, 300 MG PO TID, #90 CAP Prov:HEVER MARIANO MD 02/26/17 Alendronate Sodium* (Alendronate Sodium*) 35 Mg Tablet, 35 MG PO Q7D, #4 TAB Prov:HEVER MARIANO MD 02/26/17 Reported Medications Pravastatin Sodium* (Pravastatin Sodium*) 10 Mg Tablet, 10 MG PO HS, TAB 02/26/17 Calcium Carbonate-Vitamin D3 (Calcium 500 + D Tablet) 1 Each Tablet, 1 TAB PO DAILY, TAB 02/26/17 Follow-up Plan FU with Muriel 2 weeks. FU with Ike 4 weeks. FU with PCP 1 week. Primary Care Provider Not On Staff Doctor Time spent on discharge: < 30 minutes Pending Labs Laboratory Tests Test 03/01/17 12:06 03/01/17 19:57 Calcium Level 8.0mg/dl (8.4-10.2) 8.6mg/dl (8.4-10.2) HEVER MARIANO MD Mar 02, 2017 10:47
[2017-03-02] MEDS ORDERED: CALC0.2511 PO (10:51)
[2017-03-02] MEDS ORDERED: CALC200T26 PO (10:51)
[2017-03-02] MEDS ORDERED: LIOT25TA3 PO (10:51)
[2017-03-02] MEDS ORDERED: CITRACAL PO (11:45)
--- NOTE | 2017-03-02 11:48 | CONS ---
Date/Time of Note Date/Time of Note DATE: 03/02/17 TIME: 11:46 Consult Date/Type/Reason Admit Date/Time Feb 26, 2017 at 15:04 Type of Consultation: Endocrinology Ordering Provider: HEVER MARIANO MD Subjective No acute evens overnight. Objective Vital Signs Date Time Temp Pulse Resp B/P Pulse Ox O2 Delivery O2 Flow Rate FiO2 03/02/17 07:50 97.4 77 20 138/68 93 03/01/17 20:07 Room Air 02/27/17 08:00 3.0 Intake and Output 03/01/17 03/01/17 03/02/17 15:00 23:00 07:00 Intake Total 100 ml 1070 ml 1400 ml Output Total 1100 ml Balance 100 ml 1070 ml 300 ml Exam No pallor icterus. supple Regular no murmur rub gallop Clear bilaterally Bowel sounds positive nontender nondistended no rigidity rebound guarding overweight. No edema Results/Medications Result Diagram: 02/27/17 0420 02/27/17 0421 Results 24 hrs Laboratory Tests Test 03/01/17 12:06 03/01/17 19:57 Calcium Level 8.0 L 8.6 Medications Current Medications Morphine Sulfate (morphine) 2 mg Q2H PRN IV PAIN LEVEL 6-10 Last administered on 02/26/17 18:37; Admin Dose 2 MG; Start 02/26/17 at 15:00 Oxycodone/ Acetaminophen (Percocet (5/ 325)) 1 tab Q6H PRN PO PAIN LEVEL 6-10 Last administered on 02/27/17 21:34; Admin Dose 1 TAB; Start 02/26/17 at 15: 00 Enoxaparin Sodium (Lovenox) 40 mg DAILY SC Last administered on 03/02/17 08: 42; Admin Dose 40 MG; Start 02/27/17 at 09:00 Calcitriol (Rocaltrol) 0.5 mcg BID PO Last administered on 03/02/17 08:39; Admin Dose 0.5 MCG; Start 02/28/17 at 14:00 Liothyronine Sodium (Cytomel) 25 mcg BID PO Last administered on 03/02/17 08: 39; Admin Dose 25 MCG; Start 03/01/17 at 21:00 Calcium Carbonate (Tums) 2,000 mg QID PO ; Start 03/02/17 at 13:00 Assessment/Plan Chief Complaint/Hosp Course Assessment and plan 1. Pod # 4 :Total thyroidectomy, central neck dissection, rt selective mod neck dissection of levels 3/4, and Rt superior parathyroid autotransplantation- continue treatment per primary team, monitoring calcium levels 2. Thyroid malignancy -monitor 3. History of breast cancer -monitor 4. Diabetes? -Monitor sugars 5. DJD Problems: DARVIN PIPER Mar 02, 2017 11:48
[2017-03-02] MEDS ORDERED: CALCIUM CARBONATE 500 MG CHEW TAB PO SCH (13:00)
[2017-03-02 15:22] VITALS: BP 166/70; RESP 20
== END 2017-03-02 16:35 | disposition home or self-care (01) | DRG 626 ==
LOC: SDS 09:57 → REC 15:04 → SDS 15:04 → MS1 16:20
PROVIDERS: ADMIT Otolaryngology; ATTEND Otolaryngology
PROC: 0GTH0ZZ Resection of Right Thyroid Gland Lobe, Open Approach (ICD-10-PCS; 2017-02-26)
PROC: 07T10ZZ Resection of Right Neck Lymphatic, Open Approach (ICD-10-PCS; 2017-02-26)
PROC: 07T20ZZ Resection of Left Neck Lymphatic, Open Approach (ICD-10-PCS; 2017-02-26)
PROC: 0GSL0ZZ Reposition Right Superior Parathyroid Gland, Open Approach (ICD-10-PCS; 2017-02-26)
PROC: 0GTG0ZZ Resection of Left Thyroid Gland Lobe, Open Approach (ICD-10-PCS; principal; 2017-02-26 12:30)
DX: C73 Malignant neoplasm of thyroid gland (principal); C79.89 Secondary malignant neoplasm of other specified sites; C50.911 Malignant neoplasm of unspecified site of right female breast; E83.51 Hypocalcemia; M19.90 Unspecified osteoarthritis, unspecified site; E11.9 Type 2 diabetes mellitus without complications; K21.9 Gastro-esophageal reflux disease without esophagitis; E66.9 Obesity, unspecified; Z68.35 Body mass index [BMI] 35.0-35.9, adult; Z17.0 Estrogen receptor positive status [ER+]
CPT/HCPCS: 80053; 82306; 82310; 83735; 84100; 84443; 85025; 88307; 88331; 90686; 94664; J0295; J0610; J0690; J1650; J2175; J2270; J2405; J2710; J2765; J3010; J3475